=== PATIENT | female | born 1990 | race Two or more races ===

== ENCOUNTER 2024-03-13 14:51 | Inpatient (IN) | payer BC, MEDICARE ==
[~2024-03-13] VITALS: Ht 165.1 cm; Wt 49.9 kg
[2024-03-13] MEDS: MORPHINE SULFATE INJ 2 MG/ML DISP.SYRIN IV ONE (15:00)
[2024-03-13] MEDS: IV NS 0.9% 1,000 ML BAG IV ONE (15:00)
[2024-03-13] MEDS ORDERED: MORPHINE SULFATE INJ 4 MG/ML DISP.SYRIN ONE (15:13)
[2024-03-13] MEDS ORDERED: ONDANSETRON HCL/PF 4 MG/2 ML VIAL ONE (15:13)
[2024-03-13] MEDS: ONDANSETRON HCL/PF 4 MG/2 ML VIAL IVP ONE (15:30)
[2024-03-13 16:07] LABS: BASOPHILS # (AUTO) 0.1 K/uL (0.0-0.2); BASOPHILS % (AUTO) 0.6 % (0.0-2.0); HEMATOCRIT 39 % (33-45); HEMOGLOBIN 11.7 g/dL (11.5-14.8); LYMPHOCYTES # (AUTO) 0.6 K/uL (0.8-4.8); LYMPHOCYTES % (AUTO) 2.9 % (20.0-44.0); MEAN CORPUSCULAR HEMOGLOBIN 27 PG (26.0-33.0); MEAN CORPUSCULAR HGB CONC 30 g/dl (31.0-36.0); MEAN CORPUSCULAR VOLUME 88 fL (82-100); MONOCYTES # (AUTO) 0.9 K/uL (0.1-1.30); MONOCYTES % (AUTO) 4.6 % (2.0-12.0); NEUTROPHILS # (AUTO) 18.5 K/uL (1.8-8.9); NEUTROPHILS % (AUTO) 91.9 % (43.0-81.0); PLATELET COUNT (AUTO) 340 K/uL (150-450); RED BLOOD CELL COUNT(AUTO) 4.41 MIL/uL (4.0-5.2); RED CELL DISTRIBUTION WIDTH 14.4 % (11.5-15.0); WHITE BLOOD COUNT (AUTO) 20.2 K/uL (4.3-11.0)
[2024-03-13 16:20] LABS: CHLORIDE 92 mmol/L (98-107); SODIUM SERUM 136 mmol/L (136-145); UREA NITROGEN, BLOOD 36 mg/dL (7-18)
[2024-03-13 16:21] LABS: CALCIUM, SERUM 10.1 mg/dL (8.5-10.1); CARBON DIOXIDE 11 mmol/L (21-32)
[2024-03-13 16:23] LABS: GLUCOSE 661 mg/dL (74-106)
[2024-03-13 16:27] LABS: LACTIC ACID 5.3 mmol/L (0.4-2.0)
[2024-03-13] MEDS ORDERED: INSULIN REGULAR, HUMAN 100 UNITS in IV NS 0.9% 100 ML IV PRN (16:30)
[2024-03-13 16:32] LABS: ALANINE AMINOTRANSFERASE 28 U/L (12-78); ALBUMIN 4.7 g/dL (3.4-5.0); ALKALINE PHOSPHATASE 101 U/L (46-116); ASPARTATE AMINOTRANSFERASE 17 U/L (15-37); BILIRUBIN,DIRECT 0.1 mg/dL (0.0-0.2); BILIRUBIN,TOTAL 0.6 mg/dL (0.2-1.0); LIPASE 54 U/L (16-77); TOTAL PROTEIN, SERUM 8.4 g/dL (6.4-8.2)
[2024-03-13] MEDS: MORPHINE SULFATE INJ 4 MG/ML DISP.SYRIN IV STA (16:41)
[2024-03-13] MEDS: INSULIN REGULAR, HUMAN 100 UNITS in IV NS 0.9% 100 ML IV PRN (16:50)
[2024-03-13] MEDS: IV NS 0.9% 1,000 ML IV PRN (16:50)
[2024-03-13 17:22] LABS: CALCIUM, SERUM 9.7 mg/dL (8.5-10.1); CREATININE 1.8 mg/dL (0.6-1.3); MAGNESIUM 2.2 mg/dL (1.8-2.4); PHOSPHORUS 6.8 mg/dL (2.5-4.9)
[2024-03-13 17:24] LABS: POTASSIUM 6.5 mmol/L (3.5-5.1)
[2024-03-13 17:52] LABS: ANISOCYTOSIS 1+; BAND % (MANUAL) 1 % (0.0-5.0); EOSINOPHILS % (MANUAL) 1 % (0-4); LYMPHOCYTES % (MANUAL) 7 % (16-48); MONOCYTES % (MANUAL) 4 % (0-11.0); NEUTROPHILS % (MANUAL) 87 (42-76); PLATELET ESTIMATE ADEQUATE
[2024-03-13] MEDS ORDERED: Z GUARD REMEDY 4 OZ OINT TP PRN (18:00)
[2024-03-13] MEDS ORDERED: MAGNESIUM HYDROXIDE 30 ML UDC PO PRN (18:00)
[2024-03-13 19:00] VITALS: BP 110/66; O2SAT 97
[2024-03-13] MEDS: BLOOD SUGAR DIAGNOSTIC 1 EACH STRIP IN SCH (19:08)
[2024-03-13] MEDS: INSULIN REGULAR, HUMAN 100 UNIT in IV NS 0.9% 99 ML IV PRN (19:13)
[2024-03-13 19:14] LABS: CALCIUM, SERUM 8.9 mg/dL (8.5-10.1); MAGNESIUM 2.2 mg/dL (1.8-2.4); POTASSIUM 5.2 mmol/L (3.5-5.1)
[2024-03-13] MEDS: CEFTRIAXONE 1 G in IV D5W 50 ML IV SCH (19:32)
[2024-03-13 20:00] VITALS: BP 106/66; TEMP 99.3; O2SAT 100
[2024-03-13 21:00] VITALS: BP 100/54; O2SAT 100
[2024-03-13 22:00] VITALS: BP 99/53; O2SAT 100
[2024-03-13 22:15] VITALS: BP 102/58; O2SAT 99
[2024-03-13 23:00] VITALS: BP 102/53; O2SAT 99
[2024-03-13 23:58] LABS: CALCIUM, SERUM 8.7 mg/dL (8.5-10.1); CREATININE 1.9 mg/dL (0.6-1.3); PHOSPHORUS 2.8 mg/dL (2.5-4.9); POTASSIUM 4.8 mmol/L (3.5-5.1)
[2024-03-14] VITALS (26 sets, daily range): BP systolic 100–194; BP diastolic 60–95; TEMP 97.4–99.4; O2SAT 98–100
[2024-03-14] MEDS: IV D5/0.45 NACL 1,000 ML IV PRN (02:39)
[2024-03-14 03:17] LABS: CALCIUM, SERUM 8.4 mg/dL (8.5-10.1); CREATININE 1.7 mg/dL (0.6-1.3); POTASSIUM 4.5 mmol/L (3.5-5.1)
[2024-03-14 09:33] LABS: CALCIUM, SERUM 8.5 mg/dL (8.5-10.1); CREATININE 1.6 mg/dL (0.6-1.3); MAGNESIUM 2.1 mg/dL (1.8-2.4); PHOSPHORUS 2.8 mg/dL (2.5-4.9); POTASSIUM 3.7 mmol/L (3.5-5.1)
[2024-03-14 10:49] LABS: BASOPHILS % (AUTO) 0.2 % (0.0-2.0); EOSINOPHILS % (AUTO) 0.5 % (0.0-6.0); HEMATOCRIT 31 % (33-45); HEMOGLOBIN 10.2 g/dL (11.5-14.8); LYMPHOCYTES # (AUTO) 0.8 K/uL (0.8-4.8); LYMPHOCYTES % (AUTO) 7.7 % (20.0-44.0); MEAN CORPUSCULAR HEMOGLOBIN 28 PG (26.0-33.0); MEAN CORPUSCULAR HGB CONC 33 g/dl (31.0-36.0); MEAN CORPUSCULAR VOLUME 85 fL (82-100); MONOCYTES # (AUTO) 0.8 K/uL (0.1-1.30); MONOCYTES % (AUTO) 7.8 % (2.0-12.0); NEUTROPHILS # (AUTO) 9.1 K/uL (1.8-8.9); NEUTROPHILS % (AUTO) 83.8 % (43.0-81.0); PLATELET COUNT (AUTO) 285 K/uL (150-450); RED BLOOD CELL COUNT(AUTO) 3.72 MIL/uL (4.0-5.2); RED CELL DISTRIBUTION WIDTH 14.5 % (11.5-15.0); WHITE BLOOD COUNT (AUTO) 10.9 K/uL (4.3-11.0)
[2024-03-14] MEDS ORDERED: INSU100I47 SQ (11:19)
[2024-03-14] MEDS ORDERED: INSU100I30 SQ (11:19)
[2024-03-14] MEDS ORDERED: PRED5TAB PO (11:19)
[2024-03-14] MEDS ORDERED: MYCO180T3 PO (11:19)
[2024-03-14] MEDS: ONDANSETRON HCL/PF 4 MG/2 ML VIAL IVP PRN (13:07)
[2024-03-14] MEDS: MAG HYDROX/AL HYDROX/SIMETH 30 ML UDC PO PRN (13:08)
[2024-03-14] MEDS ORDERED: DEXTROSE 50%-WATER 50 ML DISP.SYRIN IV PRN (13:30)
[2024-03-14 14:01] LABS: CREATININE 1.2 mg/dL (0.6-1.3); MAGNESIUM 1.8 mg/dL (1.8-2.4); PHOSPHORUS 1.9 mg/dL (2.5-4.9); POTASSIUM 3.1 mmol/L (3.5-5.1)
[2024-03-14] MEDS: IV NS 0.9% 1,000 ML IV SCH (14:10)
[2024-03-14] MEDS: BLOOD SUGAR DIAGNOSTIC 1 EACH STRIP VI SCH (14:10)
[2024-03-14] MEDS: METOCLOPRAMIDE HCL 10 MG/2 ML VIAL IV SCH (15:08)
[2024-03-14] MEDS: hydrALAZINE HCL IV 20 MG VIAL IV PRN (15:08)
[2024-03-14] MEDS: ACETAMINOPHEN 325 MG TABLET PO PRN (15:15)
[2024-03-14] MEDS: INSULIN GLARGINE, 100 UNIT/ML CARTRIDGE SQ SCH (15:15)
[2024-03-14] MEDS: K PHOS NEUTRAL 250 MG TABLET PO ONE (16:39)
[2024-03-14] MEDS: predniSONE 5 MG TABLET PO SCH (16:51)
[2024-03-14] MEDS: MYCOPHENOLATE SODIUM 180 MG TABLET.DR PO SCH (17:16)
[2024-03-14] MEDS: INSULIN REGULAR, HUMAN 100 UNIT/ML 3 ML VIAL SQ PRN (17:29)
[2024-03-14 18:18] LABS: CALCIUM, SERUM 8.9 mg/dL (8.5-10.1); CREATININE 1.2 mg/dL (0.6-1.3); MAGNESIUM 1.7 mg/dL (1.8-2.4); PHOSPHORUS 1.7 mg/dL (2.5-4.9); POTASSIUM 3.8 mmol/L (3.5-5.1)
[2024-03-14] MEDS ORDERED: INSULIN GLARGINE,BASAGLAR 100 UNIT/ML INSULN.PEN SQ SCH (22:00)
[2024-03-14] MEDS: AMLODIPINE BESYLATE 5 MG TABLET PO ONE (23:30)
[2024-03-15] VITALS (24 sets, daily range): BP systolic 125–191; BP diastolic 68–110; TEMP 98.1–99.2; O2SAT 98–100
[2024-03-15] MEDS: METOCLOPRAMIDE HCL 10 MG/2 ML VIAL IV PRN (01:24)
[2024-03-15 04:28] LABS: BASOPHILS % (AUTO) 0.2 % (0.0-2.0); HEMATOCRIT 32 % (33-45); HEMOGLOBIN 10.3 g/dL (11.5-14.8); LYMPHOCYTES # (AUTO) 0.5 K/uL (0.8-4.8); LYMPHOCYTES % (AUTO) 3.9 % (20.0-44.0); MEAN CORPUSCULAR HEMOGLOBIN 27 PG (26.0-33.0); MEAN CORPUSCULAR HGB CONC 33 g/dl (31.0-36.0); MEAN CORPUSCULAR VOLUME 84 fL (82-100); MONOCYTES # (AUTO) 0.5 K/uL (0.1-1.30); NEUTROPHILS # (AUTO) 11.4 K/uL (1.8-8.9); NEUTROPHILS % (AUTO) 91.9 % (43.0-81.0); PLATELET COUNT (AUTO) 268 K/uL (150-450); RED BLOOD CELL COUNT(AUTO) 3.78 MIL/uL (4.0-5.2); RED CELL DISTRIBUTION WIDTH 14.2 % (11.5-15.0); WHITE BLOOD COUNT (AUTO) 12.4 K/uL (4.3-11.0)
[2024-03-15 04:43] LABS: CALCIUM, SERUM 8.8 mg/dL (8.5-10.1); CREATININE 1.1 mg/dL (0.6-1.3); MAGNESIUM 1.9 mg/dL (1.8-2.4); PHOSPHORUS 1.8 mg/dL (2.5-4.9); POTASSIUM 3.6 mmol/L (3.5-5.1)
[2024-03-15] MEDS: AMLODIPINE BESYLATE 5 MG TABLET PO SCH (08:02)
[2024-03-15] MEDS ORDERED: AMLO10TA4 PO (08:50)
[2024-03-15] MEDS: AMLODIPINE BESYLATE 10 MG TABLET PO SCH (09:05)
[2024-03-15] MEDS ORDERED: METOCLOPRAMIDE HCL 10 MG/2 ML VIAL IV SCH (09:30)
[2024-03-15] MEDS: hydrALAZINE HCL 50 MG TABLET PO SCH (10:22)
[2024-03-15] MEDS: NS 0.9% IV SCH (10:24)
[2024-03-15] MEDS: INSULIN GLARGINE, 100 UNIT/ML CARTRIDGE SQ SCH (10:24)
[2024-03-15] MEDS: METOCLOPRAMIDE HCL IV SCH (10:24)
[2024-03-15] MEDS: PROMETHAZINE HCL 25 MG TABLET PO ONE (10:39)
[2024-03-15 11:48] LABS: ALBUMIN 3.7 g/dL (3.4-5.0); BILIRUBIN,TOTAL 0.7 mg/dL (0.2-1.0); CALCIUM, SERUM 8.9 mg/dL (8.5-10.1); CREATININE 0.9 mg/dL (0.6-1.3); POTASSIUM 3.2 mmol/L (3.5-5.1); TOTAL PROTEIN, SERUM 7.1 g/dL (6.4-8.2)
[2024-03-15 13:34] LABS: PREGNANCY TEST URINE QUAL NEGATIVE (NEGATIVE)
[2024-03-15] MEDS: POTASSIUM CHLORIDE 20 MEQ TAB.PRT.SR PO ONE (13:44)
[2024-03-15] MEDS: PANTOPRAZOLE 40 MG TABLET.DR PO SCH (14:12)
[2024-03-15] MEDS: K PHOS NEUTRAL 250 MG TABLET PO ONE (15:40)
[2024-03-15] MEDS: *INSULIN REGULAR(HUMULIN R)HUM 100 UNIT/ML VIAL SQ PRN (22:16)
[2024-03-15 23:46] LABS: ALBUMIN 3.6 g/dL (3.4-5.0); BILIRUBIN,TOTAL 0.7 mg/dL (0.2-1.0); CALCIUM, SERUM 8.6 mg/dL (8.5-10.1); CREATININE 0.9 mg/dL (0.6-1.3); POTASSIUM 3.4 mmol/L (3.5-5.1); TOTAL PROTEIN, SERUM 7.2 g/dL (6.4-8.2)
[2024-03-16] VITALS: BP 153/89; TEMP 98.8; O2SAT 100
[2024-03-16 04:00] VITALS: BP 146/92; TEMP 98.8; O2SAT 98
[2024-03-16 08:00] VITALS: BP_SYST 120; BP_SYST 121; BP_SYST 179; BP_DIAS 71; BP_DIAS 96; TEMP 97.7; TEMP 98.2; O2SAT 100; O2SAT 98
[2024-03-16] MEDS ORDERED: HYDR-4076 PO (09:56)
[2024-03-16] MEDS ORDERED: INSU100I30 SQ (09:56)
[2024-03-16] MEDS: hydrALAZINE HCL 50 MG TABLET PO SCH (10:03)
[2024-03-16 12:00] VITALS: BP 132/73; TEMP 99.5; O2SAT 99
[2024-03-16 12:05] LABS: ALBUMIN 3.6 g/dL (3.4-5.0); BILIRUBIN,TOTAL 0.7 mg/dL (0.2-1.0); CALCIUM, SERUM 9.4 mg/dL (8.5-10.1); CREATININE 0.8 mg/dL (0.6-1.3); POTASSIUM 3.1 mmol/L (3.5-5.1); TOTAL PROTEIN, SERUM 7.4 g/dL (6.4-8.2)
[2024-03-16 16:00] VITALS: BP 123/60; TEMP 99.1; O2SAT 99
[2024-03-16] MEDS: K PHOS NEUTRAL 250 MG TABLET PO ONE (16:12)
[2024-03-16 18:00] VITALS: BP 123/60; TEMP 99.1; O2SAT 99
== END 2024-03-16 21:04 | disposition home or self-care (01) | DRG 637 ==
LOC: ER 15:23 → ICU 16:03 → TELE1 03-15 16:55
PROVIDERS: ADMIT Internal Medicine; ATTEND Internal Medicine
DX: E10.10 Type 1 diabetes mellitus with ketoacidosis without coma (principal); N17.0 Acute kidney failure with tubular necrosis; R65.10 Systemic inflammatory response syndrome (SIRS) of non-infectious origin without acute organ dysfunction; E87.1 Hypo-osmolality and hyponatremia; Z94.0 Kidney transplant status; D84.9 Immunodeficiency, unspecified; Z79.4 Long term (current) use of insulin; E10.22 Type 1 diabetes mellitus with diabetic chronic kidney disease; E87.6 Hypokalemia; N18.9 Chronic kidney disease, unspecified; Z88.8 Allergy status to other drugs, medicaments and biological substances; Z93.0 Tracheostomy status; Z86.69 Personal history of other diseases of the nervous system and sense organs; E86.9 Volume depletion, unspecified; Z79.899 Other long term (current) drug therapy
CPT/HCPCS: 36415; 71045-TC; 80048-TC; 80053-TC; 80076-TC; 82962-TC; 83605-TC; 83690-TC; 83735-TC; 84100-TC; 84484-TC; 84703-TC; 85025-TC; 87040-TC; A4223; G0378; J0360; J0696; J1815; J2270; J2405; J2765; J3490; J7030; J7050; J7060; J7512; J7518; Q0169